=== PATIENT | female | born 1955 | race Caucasian/White ===

== ENCOUNTER 2016-09-04 11:17 | Emergency (ER) | payer BC, OTHER ==
[2016-09-04] MEDS ORDERED: Ondansetron 4 MG/2 ML SDV IVPUSH ONE (11:52)
[2016-09-04] MEDS ORDERED: Sodium Chloride 0.9% 1,000 ML IV ONE (11:52)
[2016-09-04] MEDS ORDERED: HYDROmorphone 1 MG/ML Syringe IVPUSH ONE (11:52)
--- NOTE | 2016-09-04 12:12 | EDM.PDOC ---
ED HPI Trauma - General Chief Complaint: Lower Extremity Injury/Pain Stated Complaint: RIGHT HIP PAIN, S/P FALL Time Seen by Provider: 09/04/16 11:40 Source: Reports: Patient History Limitations: Reports: No limitations - History of Present Illness INITIAL COMMENTS - FREE TEXT/NARRATIVE: 61 YO WF presents to ER with right hip pain. Pt reports at approximately 9:30am she was standing on a bar stool trying to kill a spider when she fell landing on her right hip. Pt denies any other injury. Pt was unable to ambulate after the fall. Pt reports severe pain in right hip. Pt denies head or neck injury, denies abdominal pain. Occurred When: just prior to arrival Occurred Where: home Method of Injury: fall Severity: severe Pain/Injury Location: Reports: lower extremity, right Consciousness: Reports: no loss of consciousness, remembers incident, remembers coming to hosp Associated Symptoms: Reports: no other symptoms Allergies/ADRs: Allergies No Known Drug Allergies Allergy (Verified 09/04/16 11:52) Other Home Medications: Ambulatory Orders Levothyroxine Sodium [Levothyroxine Sodium] 25 mcg PO DAILY 11/25/13 [Confirmed 09/04/16] Sertraline HCl [Sertraline HCl] 250 mg PO DAILY 11/25/13 [Confirmed 09/04/16] buPROPion [Wellbutrin] 300 mg PO DAILY 11/25/13 [Confirmed 09/04/16] Ibandronate Sodium 150 mg PO Q30D 09/04/16 [Confirmed 09/04/16] Social & Family History - Tobacco Use Second Hand Smoke Exposure: No - Alcohol Use Days Per Week of Alcohol Use: 0 - Recreational Drug Use Recreational Drug Use: No - Living Situation & Occupation Living situation: Reports: alone Occupation: employed Review of Systems - Review of Systems Review Of Systems: See Below Constitutional: Reports: no symptoms Eyes: Reports: no symptoms Ears: Reports: no symptoms Nose: Reports: no symptoms Mouth/Throat: Reports: no symptoms Respiratory: Reports: No Symptoms Cardiovascular: Reports: no symptoms GI/Abdominal: Reports: No symptoms Genitourinary: Reports: no symptoms Musculoskeletal: Reports: leg pain. Denies: neck pain, back pain Skin: Reports: no symptoms Neurological: Reports: No Symptoms Psychiatric: Reports: no symptoms Trauma Exam - Physical Exam Exam: See Below Exam Limited By: No limitations General Appearance: Reports: alert, WD/WN, no apparent distress Head: Reports: atraumatic, normocephalic Eyes: bilateral eye: PERRL Nose: Reports: normal inspection, normal mucousa, no blood Throat/Mouth: Reports: Normal inspection, Normal lips, Normal teeth, Normal gums , Normal oropharynx, Normal voice, No airway compromise Neck: Reports: non-tender, full range of motion, normal alignment, normal inspection Respiratory Exam: Reports: no respiratory distress, lungs clear, normal breath sounds Cardiovascular: Reports: normal peripheral pulses, regular rate, rhythm, no edema, no gallop, no JVD, no murmur, no rub GI/Abdominal: Reports: normal bowel sounds, soft, non tender, no organomegaly, no distention, no abnormal bruit, no mass Back: Reports: full range of motion, normal inspection, non-tender Extremities: Reports: pelvis stable, bony-point tenderness (right hip), pain with movement, tenderness, unable to bear weight. 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, no motor/sensory deficits, alert , normal mood/affect, oriented x 3 Skin: Reports: Normal color, Warm/dry - Adams Coma Score Best Eye Response (Adams): (4) open spontaneously Best Verbal Response (Gemma): (5) oriented Best Motor Response (Gemma): (6) obeys commands Course - Vital Signs Last Recorded V/S: Last Vital Signs Temp 36.6 C 09/04/16 11:17 Pulse 79 09/04/16 11:17 Resp 20 09/04/16 11:17 BP 105/56 L 09/04/16 11:17 Pulse Ox 98 09/04/16 11:17 - Orders/Labs/Meds Orders: Active Orders 24 hr Category Date Time Status Hip Min 2V or 3V w Pelvis Rt [CR] Stat Exams 09/04/16 11:18 Taken Meds: Medications Discontinued Medications Generic Name Dose Route Start Last Admin Trade Name Braxtonq PRN Reason Stop Dose Admin Hydromorphone HCl 1 mg 09/04/16 11:52 09/04/16 12:07 Dilaudid IVPUSH 09/04/16 11:53 1 mg ONETIME ONE Administration Sodium Chloride 1,000 mls @ 999 mls/hr 09/04/16 11:52 09/04/16 12:05 Normal Saline IV 09/04/16 12:52 999 mls/hr .BOLUS ONE Administration Ondansetron HCl 4 mg 09/04/16 11:52 09/04/16 12:07 Zofran IVPUSH 09/04/16 11:53 4 mg ONETIME ONE Administration - Radiology Interpretation Free Text/Narrative:: right hip- Femoral neck fracture pelvis- NAD Departure - Departure Time of Disposition: 12:58 Disposition: DC/Tfer to Acute Hospital 02 Preliminary Cause of *Q: sepsis & multi system organ failure Condition: serious Clinical Impression: Fracture of femoral neck Qualifiers: Encounter type: initial encounter Fracture type: closed Laterality: right Qualified Code(s): S72.001A - Fracture of unspecified part of neck of right femur, initial encounter for closed fracture Referrals: PCP,Unknown [Primary Care Provider] - Forms: Interfacility Transfer EMTALA - My Orders Last 24 Hours: My Active Orders 09/04/16 11:18 Hip Min 2V or 3V w Pelvis Rt [CR] Stat - Assessment/Plan Last 24 Hours: My Active Orders 09/04/16 11:18 Hip Min 2V or 3V w Pelvis Rt [CR] Stat Assessment:: 1. femoral neck fracture- right 2. fall from bar stool Plan: 1. transfer to [facility] - 2. dilaudid for pain control 3. IVF NS
[2016-09-04 12:38] VITALS: BP 105/56
== END 2016-09-04 13:00 ==
LOC: KA.ED 11:17
DX: S72.001A Fracture of unspecified part of neck of right femur, initial encounter for closed fracture (principal); Z79.899 Other long term (current) drug therapy; W08.XXXA Fall from other furniture, initial encounter
CPT/HCPCS: 73502; 96361; 96374; 96375; 99285; J1170; J2405; J7030

== ENCOUNTER 2020-12-31 09:05 | Day surgery (SDC) | payer MEDICARE, OTHER ==
[~2020-12-31 09:05] MED LIST: Sodium Chloride 0.9% 10 ML Syringe FLUSH PRN
[2020-12-31] MEDS: Lactated Ringers 1,000 ML IV SCH (10:25)
[2020-12-31] MEDS ORDERED: Midazolam 1 MG/ML 2 ML SDV ONE (11:12)
[2020-12-31] MEDS ORDERED: Propofol 200 MG/20 ML SDV ONE (11:12)
--- NOTE | 2020-12-31 11:57 | PCM.OPNOTE ---
- General Post-Op/Procedure Note Date of Surgery/Procedure: 12/31/20 Operative Procedure(s): Colonoscopy with polypectomy Findings: Multiple sigmoid diverticulosis was noted. A small polyp was identified at approximately 30 cm from the anal margin. This polyp was completely removed using the cold biopsy forceps. Pre Op Diagnosis: Constipation and alteration of bowel habits. Post-Op Diagnosis: Multiple diverticulosis noted at the sigmoid colon, otherwise negative. No evidence of obstruction. Small polyp noted at the sigmoid colon. Anesthesia Technique: MAC Primary Surgeon: Abby Georges Complications: None Condition: Good Free Text/Narrative:: INFORMED CONSENT: Patient is here today for elective colonoscopy. All aspects of this procedure have been discussed with the patient. All possible complications also, including possibility of perforation, infection, pain, bleeding and unknown complications. In the event of perforation patient may need to have abdominal exploration, colon resection, colostomy and even was discussed. Anesthetic complications were handled by anesthesia department. The patient understands fully well. Patient did not have any further questions for me at the end of my interview. The patient wishes for me to proceed. PREOPERATIVE DIAGNOSIS/INDICATIONS: Habitual constipation, alteration of bowel habits rule out malignancy [] POSTOPERATIVE DIAGNOSIS: [Multiple diverticulosis of the sigmoid colon, no evidence of obstruction. Small polyp at the sigmoid colon.] INSTRUMENT USED: Olympus videocolonoscope. ASA CLASSIFICATION: [2] ANESTHESIA: Continuous EKG, oximetry and intermittent blood pressure and respiratory monitoring were performed throughout the procedure. IV Versed and Fentanyl were administered. PROCEDURE PERFORMED: Colonoscopy POSITIONS OF PATIENT: Left lateral. RECTUM: Normal. SIGMOID COLON: Multiple diverticuli were noted in the sigmoid colon. Also at 30 cm from the anal margin a small polyp was a seen and this was removed using the cold biopsy forceps. DESCENDING COLON: Normal. SPLENIC FLEXURE: Normal. TRANSVERSE COLON: Normal. HEPATIC FLEXURE: Normal. ASCENDING COLON: Normal. CECUM: Normal. ILEOCECAL VALVE: Normal. BIOPSY: None. TOLERANCE: Excellent. COMPLICATIONS: None. Final diagnosis #1 multiple diverticulosis of the sigmoid colon #2 small polyp of the sigmoid colon.
[2020-12-31 16:27] VITALS: BP 123/54; PULSE 58
== END 2020-12-31 13:30 | disposition home or self-care (01) ==
LOC: KA.SDS 09:05
PROVIDERS: ATTEND Family Medicine
DX: D12.5 Benign neoplasm of sigmoid colon (principal); K57.30 Diverticulosis of large intestine without perforation or abscess without bleeding; E03.9 Hypothyroidism, unspecified; E78.00 Pure hypercholesterolemia, unspecified; Z79.899 Other long term (current) drug therapy; Z87.891 Personal history of nicotine dependence
CPT/HCPCS: 00812; 88305; J2250; J2704; J7120